=== PATIENT | female | born 2000 | race Caucasian/White ===

== ENCOUNTER 2019-05-09 14:25 | Emergency (ER) | payer OTHER ==
--- NOTE | 2019-05-09 15:15 | EDM.PDOC ---
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 patient states she started having a headache across her for head noticed that the right side of her face felt funny her right arm felt tingling and was weak and per her father she started slurring her words this was approximately about 12:00 she felt as though she was going to pass out but never did she arrived here at 2:30 she states that the symptoms somewhat resolved but her right side of her face and arm still feel kind of numb she states the headache is an 8 out of 10 throbbing and it does not feel like her normal migraine but is not the worst headache of her life she states that she has had migraines for years and was recently taken a new migraine shot that has helped a lot she started that back in October and has not had a true migraines since she has had a couple of headaches but not migraines since she states she took a Tylenol about 45 minutes prior to arrival but it has not helped Currently she points to her for head and to the left occipital lobe as to where the pain is located as above described as 8 out of 10 throbbing patient states the weakness has gotten better but still feels numb tingling in the right arm and right face she currently denies any vision loss vision changes nausea or vomiting unsteadiness with her gait dizziness she denies any chest pain shortness of breath and mobility no lower extremity edema or calf pain she states 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: Acetaminophen - Related Data Allergies Allergy/AdvReac Type Severity Reaction Status Date / Time amitriptyline Allergy Tachycardia Verified 05/09/19 14:48 amoxicillin [From Augmentin] Allergy Rash Verified 05/09/19 14:48 cefuroxime [From Ceftin] Allergy Nausea Verified 05/09/19 14:48 clavulanic acid Allergy Rash Verified 05/09/19 14:48 [From Augmentin] sulfamethoxazole Allergy Rash Verified 05/09/19 14:48 [From Bactrim] trimethoprim [From Bactrim] Allergy Rash Verified 05/09/19 14:48 HPV Allergy Rash Uncoded 05/09/19 14:48 Home Meds: Home Meds Cholecalciferol (Vitamin D3) [Vitamin D3] 2,000 unit PO DAILY 05/09/19 [History] Dextroamphetamine/Amphetamine [Adderall 20 mg Tablet] 20 mg PO DAILY 05/09/19 [ History] Erenumab-Aooe [Aimovig Autoinjector] 140 mg SQ Q30D 05/09/19 [History] Ethinyl Estradiol/Drospirenone [Gianvi 3 mg-0.02 mg Tablet] 1 each PO ASDIRECTED 05/09/19 [History] Fluconazole [Diflucan] 150 mg PO DAILY 05/09/19 [History] Omeprazole Magnesium [Prilosec Otc] 40 mg PO DAILY 05/09/19 [History] SUMAtriptan Succinate [Imitrex] 25 mg PO ASDIRECTED PRN 05/09/19 [History] Sertraline [Zoloft] 100 mg PO DAILY 05/09/19 [History] hydrOXYzine HCl [Atarax] 25 mg PO BEDTIME PRN 05/09/19 [History] ED ROS GENERAL - Review of Systems Review Of Systems: See Below Constitutional: Reports: No Symptoms HEENT: Reports: No Symptoms. Denies: Ear Pain, Eye Pain, Rhinitis, Vision Change Respiratory: Reports: No Symptoms Cardiovascular: Reports: No Symptoms Endocrine: Reports: No Symptoms GI/Abdominal: Reports: No Symptoms : Reports: No Symptoms Musculoskeletal: Reports: No Symptoms, Other (see hpi ) Skin: Reports: No Symptoms Neurological: Reports: Headache, Numbness, Paresthesia, Tingling, Trouble Speaking, Weakness. Denies: Confusion, Dizziness, Seizure, Difficulty Walking, Gait Disturbance Psychiatric: Reports: No Symptoms Hematologic/Lymphatic: Reports: No Symptoms Immunologic: Reports: No Symptoms ED EXAM, NEURO - Physical Exam Exam: See Below Exam Limited By: No Limitations General Appearance: Alert, WD/WN, No Apparent Distress Eye Exam: Bilateral Eye: EOMI, PERRL Ears: Normal External Exam, Normal Canal, Hearing Grossly Normal, Normal TMs Nose: Normal Inspection, Normal Mucosa, No Blood Throat/Mouth: Normal Inspection, Normal Lips, Normal Teeth, Normal Gums Head Exam: Atraumatic, Normocephalic. No: Facial Swelling, Facial Tenderness Neck: Normal Inspection, Supple, Non-Tender, Full Range of Motion Respiratory/Chest: No Respiratory Distress, Lungs Clear, Normal Breath Sounds, No Accessory Muscle Use, Chest Non-Tender Cardiovascular: Normal Peripheral Pulses, Regular Rate, Rhythm, No Edema, No Gallop, No JVD, No Murmur, No Rub GI/Abdominal: Normal Bowel Sounds, Soft, Non-Tender, No Organomegaly, No Distention, No Abnormal Bruit, No Mass, Pelvis Stable. 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 HAYDEE conn neurology at [address] head noncontrast and will accept transfer as a consult have the hospitalist admit which he will take care of for further workup with MRI MRA Last Recorded V/S: Last Vital Signs Temp 37.4 C 05/09/19 14:30 Pulse 68 05/09/19 16:30 Resp 16 05/09/19 16:30 BP 97/61 05/09/19 16:30 Pulse Ox 99 05/09/19 16:30 - Orders/Labs/Meds Orders: Active Orders 24 hr Category Date Time Status Sodium Chloride 0.9% [Normal Saline] 1,000 ml Med 05/09/19 16:00 Active IV ASDIRECTED Medication Orders Sodium Chloride (Normal Saline) 1,000 mls @ 100 mls/hr IV ASDIRECTED TUAN Last Admin: 05/09/19 15:47 Dose: 100 mls/hr Labs: Laboratory Tests 05/09/19 05/09/19 05/09/19 Range/Units 15:17 15:17 15:25 WBC 8.1 (4.0-10.0) x10^3/uL RBC 4.52 (4.00-5.50) x10^6/uL Hgb 13.6 (12.0-16.0) g/dL Hct 39.7 (33.0-47.0) % MCV 87.8 (78.0-93.0) fL MCH 30.1 (26.0-32.0) pg MCHC 34.3 (32.0-36.0) g/dL RDW Coeff of Hay 12.2 (10.0-15.0) % Plt Count 187 (130-400) x10^3/uL Add Manual Diff Yes Neutrophils % (Manual) 65 (50-80) % Lymphocytes % (Manual) 30 (25-50) % Monocytes % (Manual) 3 (2-11) % Eosinophils % (Manual) 2 (0-4) % Platelet Estimate Adequate Sodium 140 (136-145) mmol/L Potassium 4.0 (3.5-5.1) mmol/L Chloride 104 (98-107) mmol/L Carbon Dioxide 28 (21-32) mmol/L Anion Gap 12.0 (10-20) mmol/L BUN 13 (7-18) mg/dL Creatinine 0.7 (0.55-1.02) mg/dL Est Cr Clr Drug Dosing 110.70 mL/min Estimated GFR (MDRD) > 60 Glucose 84 (74-106) mg/dL Calcium 9.1 (8.5-10.1) mg/dL Urine HCG, Qual Negative (NEGATIVE) Meds: Medications Generic Name Dose Route Start Last Admin Trade Name Freq PRN Reason Stop Dose Admin Sodium Chloride 1,000 mls @ 100 mls/hr 05/09/19 16:00 05/09/19 15:47 Normal Saline IV 100 mls/hr ASDIRECTED TUAN Administration Discontinued Medications Generic Name Dose Route Start Last Admin Trade Name Steve PRN Reason Stop Dose Admin Sodium Chloride 500 mls @ 100 mls/hr 05/09/19 15:45 Normal Saline IV ASDIRECTED TUAN Departure - Departure Time of Disposition: 15:30 Disposition: DC/Tfer to Acute Hospital 02 Condition: Good Clinical Impression: Head ache, Multiple neurological symptoms - Discharge Information *PRESCRIPTION DRUG MONITORING PROGRAM REVIEWED*: Not Applicable *COPY OF PRESCRIPTION DRUG MONITORING REPORT IN PATIENT GISSEL: No Forms: ED Department Discharge, Interfacility Transfer EMTALA - Problem List & Annotations (1) Head ache SNOMED Code(s): 13844437 Code(s): R51 - HEADACHE Status: Acute Current Visit: Yes (2) Multiple neurological symptoms SNOMED Code(s): 888852389, 715309158 Code(s): R29.90 - UNSPECIFIED SYMPTOMS AND SIGNS INVOLVING THE NERVOUS SYSTEM Status: Acute Current Visit: Yes - My Orders Last 24 Hours: My Active Orders 05/09/19 16:00 Sodium Chloride 0.9% [Normal Saline] 1,000 ml IV ASDIRECTED - Assessment/Plan Last 24 Hours: My Active Orders 05/09/19 16:00 Sodium Chloride 0.9% [Normal Saline] 1,000 ml IV ASDIRECTED
[2019-05-09 15:43] LABS: CHLORIDE,CL 104 mmol/L (98-107); SODIUM,NA 140 mmol/L (136-145)
[2019-05-09] MEDS ORDERED: Sodium Chloride 0.9% 500 ML IV SCH (15:45)
[2019-05-09] MEDS ORDERED: Sodium Chloride 0.9% 1,000 ML IV SCH (16:00)
--- NOTE | 2019-05-09 16:28 | CT ---
[id number] CT/CT Head WO IV EXAM: CT Head WO IV CLINICAL DATA: HEADACHE WITH DIZZINESS COMPARISON: NO PREVIOUS SIMILAR EXAM IS AVAILABLE FOR COMPARISON. FINDINGS: There is no mass or mass effect. There is no hemorrhage or hydrocephalus. There are no extra-axial fluid collections. There are no sites of abnormal attenuation. IMPRESSION: NO PLAIN CT EVIDENCE OF ACUTE INTRACRANIAL PROCESS. Kavon Duval MD 05/09/19 [id number] Thank you for allowing us to participate in the care of your patient.
== END 2019-05-09 18:20 | disposition short-term general hospital (02) ==
LOC: VM.ED 14:25
DX: R51 Headache (principal); R29.90 Unspecified symptoms and signs involving the nervous system; R29.700 NIHSS score 0; Z88.1 Allergy status to other antibiotic agents; Z88.8 Allergy status to other drugs, medicaments and biological substances; Z79.899 Other long term (current) drug therapy
CPT/HCPCS: 36415; 70450; 80048; 81025; 85025; 96360; 96361; 99285; J7030